=== PATIENT | male | born 1980 | race Caucasian/White ===

== ENCOUNTER 2020-04-10 10:13 | Emergency (ER) | payer OTHER ==
[2020-04-10 10:27] VITALS: TEMP 98
[2020-04-10] MEDS ORDERED: MECLIZINE 12.5 MG TAB PO STA (10:44)
[2020-04-10] MEDS ORDERED: METOCLOPRAMIDE 5 MG/ML 2 ML VIAL IVP STA (10:44)
[2020-04-10] MEDS ORDERED: diphenhydrAMINE 50 MG/ML 1 ML VIAL IVP STA (10:44)
[2020-04-10] MEDS ORDERED: SODIUM CHLORIDE 0.9% 1,000 ML IV STA (10:44)
--- NOTE | 2020-04-10 11:12 | ED ---
Dizziness HPI - General Chief Complaint: Dizziness Stated Complaint: Ear pain and dizziness Time Seen by Provider: 04/10/20 10:29 Source: patient Mode of arrival: wheelchair Limitations: no limitations - History of Present Illness Initial Comments: Patient is a 39-year-old male presenting to the emergency Department with complaints of dizziness and nausea that has been going on for approximately 5 days. Patient states last weekend he used earplugs in his ears after his neighbors were having a loud democrat. Patient states when he woke up and remove t he earplugs he started having some mild dizziness. Patient states started off very mild but over the past 4 days as symptoms have increased. He states it is better in the morning and then the dizziness gets worse throughout the day. He is in vomiting 2 days ago. Patient states he lives in [place], [place] but is in the area camping. He did go to urgent care prior to the ER and they had a discussion about vertigo however they recommended going to the ER for further evaluation. Patient denies being on any medications at this time, he denies any recent antibiotic use. He denies any falls or trauma to his head. He denies any chest pain, shortness of breath, diarrhea, abdominal pain, blurry vision. He states he feels like the room is spinning when the dizziness is going on. He has no further complaints at this time. Upon arrival to the ER, his vital signs are stable. - Related Data Previous Rx's Medication Instructions Recorded Meclizine [Antivert] 25 mg PO BID 15 Days #30 tab 04/10/20 Ondansetron Odt [Zofran Odt] 4 mg PO Q8HR PRN #10 tab 04/10/20 Allergies Allergy/AdvReac Type Severity Reaction Status Date / Time No Known Allergies Allergy Verified 04/10/20 10:24 Review of Systems ROS Statement: Those systems with pertinent positive or pertinent negative responses have been documented in the HPI. ROS Other: All systems not noted in ROS Statement are negative. Past Medical History Past Medical History: No Reported History History of Any Multi-Drug Resistant Organisms: None Reported Past Surgical History: Hernia Repair Past Psychological History: No Psychological Hx Reported Smoking Status: Never smoker Past Alcohol Use History: Daily Past Drug Use History: None Reported General Exam - General Exam Comments Initial Comments: GENERAL: Patient is well-developed and well-nourished. Patient is nontoxic and in no acute distress. HEAD: Atraumatic, normocephalic. EYES: Pupils equal round and reactive to light, extraocular movements intact, sclera anicteric, conjunctiva are normal. Eyelids were unremarkable. ENT: TMs normal, nares patent, oropharynx clear without exudates. Moist mucous membranes. NECK: Normal range of motion, supple without lymphadenopathy or JVD. LUNGS: Unlabored respirations. Breath sounds clear to auscultation bilaterally and equal. No wheezes rales or rhonchi. HEART: Regular rate and rhythm without murmurs, rubs or gallops. ABDOMEN: Soft, nontender, normoactive bowel sounds. No guarding, no rebound. No masses appreciated. : Deferred MUSCULOSKELETAL: Normal extremities with adequate strength and normal range of motion, no pitting or edema. No clubbing or cyanosis. NEUROLOGICAL: Patient is alert and oriented x 3. Motor and sensory are also intact. Cranial nerves II through XII grossly intact. Symmetrical smile. Normal speech, normal gait. PSYCH: Normal mood, normal affect. SKIN: Warm, Dry, normal turgor, no rashes or lesions noted. Limitations: no limitations Course Vital Signs 04/10/20 04/10/20 10:25 12:25 Temperature 98 F Pulse Rate 54 L 51 L Respiratory 18 20 Rate Blood Pressure 147/94 132/82 O2 Sat by Pulse 99 100 Oximetry Medical Decision Making - Medical Decision Making Patient is a 39-year-old male here for dizziness has been increasing over the past 5 days. He wore earplugs last weekend and then his symptoms started. Denies any trauma or falls. Exam is unremarkable, no neuro deficits. Labs are stable, no acute abnormality. I did give patient some fluids, Reglan, meclizine, Benadryl which did improve his symptoms. I discussed with patient that I recommend following up with ENT for further evaluation for possible vertigo, damage to his eardrum. Patient lives in [place] and will call his PCP for an ENT near his house. Patient is stable for discharge. Patient is comfortable with going home. Return parameters were discussed with the patient he verbalizes understanding. I will give patient prescription for meclizine as well as Zofran. - Lab Data Result diagrams: 04/10/20 10:55 04/10/20 10:55 Lab Results 04/10/20 04/10/20 Range/Units 10:55 10:55 WBC 10.7 H (3.8-10.6) k/uL RBC 5.14 (4.30-5.90) m/uL Hgb 14.3 (13.0-17.5) gm/dL Hct 42.9 (39.0-53.0) % MCV 83.4 (80.0-100.0) fL MCH 27.8 (25.0-35.0) pg MCHC 33.3 (31.0-37.0) g/dL RDW 12.5 (11.5-15.5) % Plt Count 194 (150-450) k/uL Neutrophils % 80 % Lymphocytes % 13 % Monocytes % 5 % Eosinophils % 1 % Basophils % 0 % Neutrophils # 8.6 H (1.3-7.7) k/uL Lymphocytes # 1.4 (1.0-4.8) k/uL Monocytes # 0.6 (0-1.0) k/uL Eosinophils # 0.1 (0-0.7) k/uL Basophils # 0.0 (0-0.2) k/uL Sodium 138 (137-145) mmol/L Potassium 4.0 (3.5-5.1) mmol/L Chloride 107 (98-107) mmol/L Carbon Dioxide 25 (22-30) mmol/L Anion Gap 6 mmol/L BUN 13 (9-20) mg/dL Creatinine 0.79 (0.66-1.25) mg/dL Est GFR (CKD-EPI)AfAm >90 (>60 ml/min/1.73 sqM) Est GFR (CKD-EPI)NonAf >90 (>60 ml/min/1.73 sqM) Glucose 105 H (74-99) mg/dL Calcium 9.5 (8.4-10.2) mg/dL Total Bilirubin 0.7 (0.2-1.3) mg/dL AST 22 (17-59) U/L ALT 24 (4-49) U/L Alkaline Phosphatase 45 (38-126) U/L Total Protein 6.9 (6.3-8.2) g/dL Albumin 4.3 (3.5-5.0) g/dL Disposition Clinical Impression: Dizziness, Nausea Disposition: HOME SELF-CARE Condition: Stable Instructions (If sedation given, give patient instructions): Dizziness (ED) Additional Instructions: Please return to the Emergency Department if symptoms worsen or any other concerns. Follow-up with ENT as discussed. May take Zofran for nausea and meclizine for the dizziness as prescribed. Prescriptions: Meclizine [Antivert] 25 mg PO BID 15 Days #30 tab Ondansetron Odt [Zofran Odt] 4 mg PO Q8HR PRN #10 tab PRN Reason: Nausea Is patient prescribed a controlled substance at d/c from ED?: No Referrals: Nina Hannah MD [Primary Care Provider] - 1-2 days
[2020-04-10 11:17] LABS: Basophils % (A) 0 %; Eosinophils # (A) 0.1 k/uL (0-0.7); Eosinophils % (A) 1 %; HCT 42.9 % (39.0-53.0); HGB 14.3 gm/dL (13.0-17.5); Lymphocytes # (A) 1.4 k/uL (1.0-4.8); Lymphocytes % (A) 13 %; MCH 27.8 pg (25.0-35.0); MCHC 33.3 g/dL (31.0-37.0); MCV 83.4 fL (80.0-100.0); Mean Platelet Volume 9.2; Monocytes # (A) 0.6 k/uL (0-1.0); Monocytes % (A) 5 %; Neutrophils # (A) 8.6 k/uL (1.3-7.7); Neutrophils % (A) 80 %; Platelet Count 194 k/uL (150-450); RBC 5.14 m/uL (4.30-5.90); RDW 12.5 % (11.5-15.5); WBC 10.7 k/uL (3.8-10.6)
[2020-04-10 11:30] LABS: ALT 24 U/L (4-49); AST 22 U/L (17-59); African American GFR (CKD) >90 (>60 ml/min/1.73 sqM); Albumin 4.3 g/dL (3.5-5.0); Alkaline Phosphatase 45 U/L (38-126); Anion Gap 6 mmol/L; Blood Urea Nitrogen 13 mg/dL (9-20); Calcium 9.5 mg/dL (8.4-10.2); Carbon Dioxide 25 mmol/L (22-30); Chloride 107 mmol/L (98-107); Glucose 105 mg/dL (74-99); Non-African American GFR(CKD) >90 (>60 ml/min/1.73 sqM); Sodium 138 mmol/L (137-145); Total Bilirubin 0.7 mg/dL (0.2-1.3); Total Protein 6.9 g/dL (6.3-8.2)
[2020-04-10 12:28] VITALS: BP 132/82; PULSE 51; RESP 20
== END 2020-04-10 12:36 | disposition home or self-care (01) ==
LOC: EC 10:13
DX: R42 Dizziness and giddiness (principal); R11.2 Nausea with vomiting, unspecified
CPT/HCPCS: 36415; 80053; 85025; 99283; 96374; 96375; 96361 ×2; J1200; J2765